=== PATIENT | female | born 1975 | race Hispanic/Latino ===

== ENCOUNTER 2022-06-13 09:59 | Inpatient (IN) | payer OTHER ==
[~2022-06-13] VITALS: Ht 165.1 cm; Wt 71.9 kg
[2022-06-13 10:35] LABS: BASOPHILS % (AUTO) 0.6 % (0.0-5.0); EOSINOPHILS % (AUTO) 0.5 % (0.0-8.0); HEMATOCRIT 38.1 % (36-48); LYMPHOCYTES % (AUTO) 12.6 % (21.0-51.0); MEAN CORPUSCULAR HEMOGLOBIN 28.3 pg (27.0-33.0); MEAN CORPUSCULAR HGB CONC 32.5 g/dL (32.0-36.0); MONOCYTES % (AUTO) 7.6 % (3.0-13.0); NEUTROPHILS % (AUTO) 78.5 % (40.0-77.0); PLATELET COUNT (AUTO) 441 K/uL (130-400); RED BLOOD CELL COUNT(AUTO) 4.38 MIL/uL (4.00-5.50); RED CELL DISTRIBUTION WIDTH 14.3 % (11.0-15.5); WHITE BLOOD COUNT (AUTO) 13.9 K/uL (4.8-10.8)
[2022-06-13 10:40] LABS: BILIRUBIN,URINE NEGATIVE (NEGATIVE); GLUCOSE, URINE (UA) NEGATIVE (NEGATIVE); KETONES,URINE NEGATIVE (NEGATIVE); LEUKOCYTE ESTERASE ,URINE MODERATE Leu/uL (NEGATIVE); NITRATE,URINE POSITIVE (NEGATIVE); OCCULT BLOOD,URINE NEGATIVE (NEGATIVE); PROTEIN,URINE TRACE mg/dL (NEGATIVE)
[2022-06-13 10:43] LABS: CREATININE 0.6 mg/dL (0.5-1.5); POTASSIUM 3.7 mmol/L (3.5-5.1)
[2022-06-13 10:48] LABS: ALBUMIN 3.6 g/dL (3.5-5.0); TOTAL PROTEIN, SERUM 8.3 g/dL (6.0-8.3)
[2022-06-13 11:08] LABS: APPEARANCE,URINE SLIGHTLY CLOUDY (CLEAR); COLOR,URINE YELLOW (YELLOW)
[2022-06-13] MEDS ORDERED: ACETAMINOPHEN 500 MG TABLET PO ONE (11:30)
[2022-06-13] MEDS ORDERED: CEFTRIAXONE 1G VIAL IVP ONE (11:30)
[2022-06-13 12:05] LABS: BACTERIA,URINE Many /HPF (None Seen); SQUAMOUS EPITHELIAL CELL,UR Moderate /HPF (0-2); WBC,URINE 26-50 /HPF (0-1)
[2022-06-13] MEDS ORDERED: VANCOMYCIN PROTOCOL PER PHARMACY IV PRN (14:30)
[2022-06-13] MEDS ORDERED: POTASSIUM CHLORIDE 20MEQ/100ML 100 ML IV PRN (14:30)
[2022-06-13] MEDS ORDERED: ONDANSETRON 4MG INJ IV PRN (14:30)
[2022-06-13] MEDS ORDERED: LACTULOSE 20 GM/30 ML UDCUP PO PRN (14:30)
[2022-06-13] MEDS ORDERED: NITROGLYCERIN 0.4 MG SL TAB SL PRN (14:30)
[2022-06-13] MEDS ORDERED: MAG/ALUM/SIMETH 30 ML UDCUP PO PRN (14:30)
[2022-06-13] MEDS ORDERED: MAGNESIUM 2GM PREMIX 50ML 50 ML IV PRN (14:30)
[2022-06-13] MEDS ORDERED: ACETAMINOPHEN 325 MG TAB PO PRN ×2 (14:30)
[2022-06-13] MEDS ORDERED: LIDOCAINE HCL-MPF 1% 2ML VIAL IV PRN (14:30)
[2022-06-13] MEDS ORDERED: DEXTROSE 50%-WATER 50 ML DISP.SYRIN IV PRN (14:30)
[2022-06-13] MEDS ORDERED: POTASSIUM CHLORIDE 10% ELIXIR 20 MEQ/15 ML UDCUP PO PRN (14:30)
[2022-06-13] MEDS ORDERED: DIPHENHYDRAMINE HCL 25 MG CAPSULE PO PRN (14:30)
[2022-06-13] MEDS ORDERED: DiphenhydrAMINE HCL 50 MG/ML VIAL IV PRN (14:30)
[2022-06-13] MEDS ORDERED: GLUCAGON 1MG KIT 1 MG ML IM PRN (14:30)
[2022-06-13] MEDS ORDERED: GUAIFENESIN-DM 200/20 MG 10 ML PO PRN (14:30)
[2022-06-13] MEDS ORDERED: GADOTERATE MEGLUMINE 10 MMOL/20 ML VIAL IV ONE (14:40)
[2022-06-13 15:24] LABS: HEMOGLOBIN A1C 9.7 % (4.0-6.0)
[2022-06-13 15:26] LABS: CRP QUANTITATIVE 79.4 mg/L (0.00-9.0); THYROID STIMULATING HORMONE 0.29 uIU/mL (0.36-3.74)
[2022-06-13] MEDS ORDERED: 0.9%NACL 1000ML 1,710 ML IV ONE (15:30)
[2022-06-13 16:09] LABS: AMPHET/METH SCREEN,URINE NEGATIVE (NEGATIVE); BARBITURATE SCREEN, URINE NEGATIVE (NEGATIVE); BENZODIAZEPINES SCREEN,URINE NEGATIVE (NEGATIVE); CANNABINOID SCREEN,URINE NEGATIVE (NEGATIVE); COCAINE SCREEN,URINE NEGATIVE (NEGATIVE); OPIATE SCREEN,URINE NEGATIVE (NEGATIVE); PHENCYCLIDINE SCREEN,URINE NEGATIVE (NEGATIVE)
[2022-06-13] MEDS: INSULIN HUMULIN R 100 UNIT/ML 3ML SQ SCH ×2 (16:30→21:00)
[2022-06-13 16:54] LABS: RAPID PLASMA REAGIN NONREACTIVE (NONREACTIVE)
[2022-06-13] MEDS: KETOROLAC 15MG/ML VIAL (15MG/ML) IV PRN (18:23)
[2022-06-13] MEDS: VANCOMYCIN 1G/250ML KIT 250 ML IV SCH (18:23)
[2022-06-13] MEDS ORDERED: FAMOTIDINE 20MG VIAL IV SCH (21:00)
[2022-06-13] MEDS: FAMOTIDINE 20MG TAB PO SCH (21:29)
[2022-06-13] MEDS: HEPARIN 5,000 UNIT VIAL SQ SCH (21:29)
[2022-06-13 22:02] LABS: HEPATITIS A IGM ANTIBODY Non-Reactive (Nonreactive); HEPATITIS B CORE IGM ANTIBODY Non-Reactive (Negative); HEPATITIS B SURFACE ANTIGEN Non-Reactive (Nonreactive); HEPATITIS C ANTIBODY Non-Reactive (Nonreactive)
[2022-06-13 23:50] VITALS: BP 109/74
[2022-06-14] MEDS: KETOROLAC 15MG/ML VIAL (15MG/ML) IV PRN (02:49)
[2022-06-14 04:54] LABS: BASOPHILS % (AUTO) 0.5 % (0.0-5.0); EOSINOPHILS % (AUTO) 0.4 % (0.0-8.0); LYMPHOCYTES % (AUTO) 13.9 % (21.0-51.0); MEAN CORPUSCULAR HEMOGLOBIN 28.3 pg (27.0-33.0); MEAN CORPUSCULAR HGB CONC 32.7 g/dL (32.0-36.0); MEAN CORPUSCULAR VOLUME 86.7 fL (79-99); MONOCYTES % (AUTO) 10.8 % (3.0-13.0); NEUTROPHILS % (AUTO) 73.9 % (40.0-77.0); PLATELET COUNT (AUTO) 364 K/uL (130-400); RED BLOOD CELL COUNT(AUTO) 3.46 MIL/uL (4.00-5.50); RED CELL DISTRIBUTION WIDTH 14.2 % (11.0-15.5); WHITE BLOOD COUNT (AUTO) 13.7 K/uL (4.8-10.8)
[2022-06-14 05:14] LABS: ALBUMIN 2.6 g/dL (3.5-5.0); CREATININE 0.6 mg/dL (0.5-1.5); POTASSIUM 3.3 mmol/L (3.5-5.1); TOTAL PROTEIN, SERUM 6.4 g/dL (6.0-8.3)
[2022-06-14 05:59] VITALS: BP 109/61
[2022-06-14] MEDS: INSULIN HUMULIN R 100 UNIT/ML 3ML SQ SCH ×4 (06:06→20:34)
[2022-06-14 08:00] VITALS: BP 121/69
[2022-06-14] MEDS ORDERED: 0.9% NACL 250ML 250 ML ONE (08:59)
[2022-06-14] MEDS: VANCOMYCIN 1G/250ML KIT 250 ML IV SCH ×2 (09:04→20:25)
[2022-06-14] MEDS: FAMOTIDINE 20MG TAB PO SCH ×2 (09:04→20:25)
[2022-06-14] MEDS: HEPARIN 5,000 UNIT VIAL SQ SCH ×3 (09:06→20:34)
[2022-06-14 12:00] VITALS: BP 103/64
[2022-06-14 16:00] VITALS: BP 107/68
[2022-06-14] MEDS: KCL 20 MEQ ERTAB PO PRN ×2 (16:32→18:42)
[2022-06-14] MEDS: CEFEPIME HCL 2 GM VIAL IVP SCH (18:41)
[2022-06-14 20:00] VITALS: BP_SYST 160; BP_SYST 92; BP_DIAS 61; BP_DIAS 65
[2022-06-14] MEDS: TAMSULOSIN HCL 0.4 MG CAP.ER.24H PO SCH (20:27)
[2022-06-15] VITALS: BP_SYST 136; BP_SYST 97; BP_DIAS 58; BP_DIAS 60
[2022-06-15] MEDS: CEFEPIME HCL 2 GM VIAL IVP SCH (02:01)
[2022-06-15 04:00] VITALS: BP 98/60
[2022-06-15] MEDS: INSULIN HUMULIN R 100 UNIT/ML 3ML SQ SCH (06:05)
[2022-06-15 07:40] LABS: BASOPHILS % (AUTO) 0.7 % (0.0-5.0); EOSINOPHILS % (AUTO) 2.7 % (0.0-8.0); HEMATOCRIT 31.2 % (36-48); LYMPHOCYTES % (AUTO) 25.4 % (21.0-51.0); MEAN CORPUSCULAR HEMOGLOBIN 28.6 pg (27.0-33.0); MEAN CORPUSCULAR HGB CONC 32.7 g/dL (32.0-36.0); MEAN CORPUSCULAR VOLUME 87.4 fL (79-99); MONOCYTES % (AUTO) 8.6 % (3.0-13.0); NEUTROPHILS % (AUTO) 62.1 % (40.0-77.0); PLATELET COUNT (AUTO) 394 K/uL (130-400); RED BLOOD CELL COUNT(AUTO) 3.57 MIL/uL (4.00-5.50); RED CELL DISTRIBUTION WIDTH 14.3 % (11.0-15.5); WHITE BLOOD COUNT (AUTO) 8.4 K/uL (4.8-10.8)
[2022-06-15] MEDS ORDERED: CEPH500B PO (07:51)
[2022-06-15] MEDS ORDERED: METF-444 PO (07:53)
[2022-06-15 08:00] VITALS: BP 111/68
[2022-06-15 08:30] LABS: ALBUMIN 2.8 g/dL (3.5-5.0); CREATININE 0.6 mg/dL (0.5-1.5)
[2022-06-15] MEDS: HEPARIN 5,000 UNIT VIAL SQ SCH (09:00)
[2022-06-15] MEDS ORDERED: VANCOMYCIN 1G/250ML KIT 250 ML IV SCH (09:00)
[2022-06-15] MEDS: TAMSULOSIN HCL 0.4 MG CAP.ER.24H PO SCH (09:12)
[2022-06-15] MEDS: FAMOTIDINE 20MG TAB PO SCH (09:12)
== END 2022-06-15 09:29 | disposition home or self-care (01) | DRG 872 ==
LOC: EDH 09:59 → EDHIP 10:00 → UNDOADMIN 14:26 → EDHIP 14:26 → 3BH 22:26
PROVIDERS: ADMIT Internal Medicine; ATTEND Internal Medicine
DX: A41.9 Sepsis, unspecified organism (principal); N13.6 Pyonephrosis; M54.50 Low back pain, unspecified; Z20.822 Contact with and (suspected) exposure to COVID-19; F15.10 Other stimulant abuse, uncomplicated; E11.9 Type 2 diabetes mellitus without complications; F17.200 Nicotine dependence, unspecified, uncomplicated; Z87.442 Personal history of urinary calculi; Z90.49 Acquired absence of other specified parts of digestive tract; Z91.14 Patient's other noncompliance with medication regimen
CPT/HCPCS: 36415; 71045; 72157; 72158; 76770; 80053; 80074; 80202; 80305; 81001; 82948; 83036; 83605; 84145; 84443; 85025; 85651; 86140; 86592; 86701; 87040; 87077; 87088; 87186; 87390; 87486; 87635; 87797; 87804; C9803; G0378; J0692; J0696; J1644; J1815; J1885; J3370; J7030; J7050

== ENCOUNTER → 2022-08-03 | Emergency (ER) | payer SELFPAY ==
[~2022-08-03] VITALS: Ht 165.1 cm; Wt 70.3 kg
[~2022-08-03] MED LIST: CEPH500B PO; METF-444 PO
[2022-08-03 18:08] VITALS: BP 109/71
== END | disposition left against medical advice (07) ==
LOC: EDH 17:16
DX: M53.3 Sacrococcygeal disorders, not elsewhere classified (principal); Z53.21 Procedure and treatment not carried out due to patient leaving prior to being seen by health care provider; W01.0XXA Fall on same level from slipping, tripping and stumbling without subsequent striking against object, initial encounter; Y93.89 Activity, other specified; Y92.89 Other specified places as the place of occurrence of the external cause; Y99.8 Other external cause status

== ENCOUNTER 2023-01-23 20:42 | Emergency (ER) | payer OTHER ==
[~2023-01-23] VITALS: Ht 165.1 cm; Wt 72.6 kg
[2023-01-23 20:43] VITALS: BP 148/62
[2023-01-23 21:01] LABS: BASOPHILS % (AUTO) 1.4 % (0.0-5.0); EOSINOPHILS % (AUTO) 5.2 % (0.0-8.0); HEMATOCRIT 36.2 % (36-48); MEAN CORPUSCULAR HEMOGLOBIN 27.8 pg (27.0-33.0); MEAN CORPUSCULAR HGB CONC 32.9 g/dL (32.0-36.0); MEAN CORPUSCULAR VOLUME 84.6 fL (79-99); MONOCYTES % (AUTO) 5.7 % (3.0-13.0); NEUTROPHILS % (AUTO) 50.3 % (40.0-77.0); PLATELET COUNT (AUTO) 542 K/uL (130-400); RED BLOOD CELL COUNT(AUTO) 4.28 MIL/uL (4.00-5.50); RED CELL DISTRIBUTION WIDTH 13.1 % (11.0-15.5); WHITE BLOOD COUNT (AUTO) 9.4 K/uL (4.8-10.8)
[2023-01-23 21:13] LABS: CREATININE 0.9 mg/dL (0.5-1.5); POTASSIUM 3.7 mmol/L (3.5-5.1)
[2023-01-23 21:17] LABS: ALBUMIN 3.5 g/dL (3.5-5.0); TOTAL PROTEIN, SERUM 7.7 g/dL (6.0-8.3)
[2023-01-23] MEDS ORDERED: IOHEXOL-350 75 ML VIAL IV ONE (21:27)
[2023-01-23] MEDS ORDERED: CYCL-309 PO (22:43)
[2023-01-23] MEDS ORDERED: IBUP-1493 PO (22:43)
== END 2023-01-23 23:12 | disposition home or self-care (01) ==
LOC: EDH 20:42
DX: R07.89 Other chest pain (principal); E11.9 Type 2 diabetes mellitus without complications; E78.00 Pure hypercholesterolemia, unspecified; F41.9 Anxiety disorder, unspecified; F32.A Depression, unspecified; Z79.899 Other long term (current) drug therapy; Z98.890 Other specified postprocedural states
CPT/HCPCS: 99285; 72125; 71045; 80053; 85025; 36415; 71260; 93005 ×2; Q9967